=== PATIENT | male | born 1940 ===

== ENCOUNTER 2018-07-19 17:19 | Emergency (ER) | payer MEDICAID, OTHER ==
[~2018-07-19] VITALS: Ht 165.1 cm; Wt 54.0 kg
[2018-07-19 18:10] LABS: Hematocrit 40.5 % (41.0-53.0); Hemoglobin 13.7 g/dL (13.5-17.5); Mean Corpuscular Hemoglobin 31.1 pg (28.0-32.0); Mean Corpuscular Hgb Conc. 33.8 g/dL (32.0-36.0); Mean Corpuscular Volume 91.9 fL (80.0-100.0); Platelet Count (auto) 165 10^3/uL (140-450); Red Cell Distribution Width 15.1 % (11.8-14.3); White Blood Cell 7.8 10^3/uL (4.4-10.8)
[2018-07-19 18:20] LABS: Potassium 4.5 mmol/L (3.5-5.1)
[2018-07-19 18:24] LABS: Albumin 3.6 g/dL (3.4-5.0); Band Neutrophils % (manual) 0; Basophils % (manual) 0 (0.0-2.0); Blast Cells 0; Calcium 8.4 mg/dL (8.5-10.1); Metamyelocytes % 0; Myelocytes % 0; Promyelocytes % 0; Reactive Lymphocytes 0
[2018-07-19 18:30] LABS: BUN/Creatinine Ratio 20.2; Bilirubin, Total 0.3 mg/dL (0.2-1.0); Total Protein 6.9 g/dL (6.4-8.2)
[2018-07-19 18:56] LABS: Eosinophils % (manual) 30 (0-7); Lymphocytes % (manual) 19 (10.0-50.0); Monocytes % (manual) 3 (0-12)
[2018-07-19 19:03] VITALS: BP 170/70
== END 2018-07-19 18:52 | disposition home or self-care (01) ==
LOC: ER 17:25
DX: K40.90 Unilateral inguinal hernia, without obstruction or gangrene, not specified as recurrent (principal); Z90.49 Acquired absence of other specified parts of digestive tract
CPT/HCPCS: 36415; 76705; 80053; 85007; 85027